=== PATIENT | male | born 1945 | race Caucasian/White ===

== ENCOUNTER 2018-11-16 07:39 | Observation (INO) | payer MEDICARE, BC ==
[~2018-11-16] VITALS: Ht 185.4 cm; Wt 75.2 kg
[2018-11-16] MEDS ORDERED: PLEASE ENTER ALLERGIES MC SCH (08:30)
[2018-11-16] MEDS ORDERED: PLEASE ENTER HEIGHT AND WEIGHT MC SCH (08:30)
[2018-11-16] MEDS ORDERED: AMIT25TA PO (08:56)
[2018-11-16] MEDS ORDERED: LAMO200T2 PO (08:56)
[2018-11-16] MEDS ORDERED: AMLO2.5T5 PO (08:56)
[2018-11-16] MEDS ORDERED: IBUP-1484 PO (08:56)
[2018-11-16] MEDS ORDERED: CLON0.25 PO (08:56)
[2018-11-16] MEDS ORDERED: METF500T17 PO (08:56)
[2018-11-16] MEDS ORDERED: ASPI-496 PO (08:56)
[2018-11-16] MEDS ORDERED: CLOP75TA PO (08:56)
[2018-11-16] MEDS ORDERED: FLUT9.9S INH (08:56)
[2018-11-16] MEDS ORDERED: FISH OIL PO (08:56)
[2018-11-16] MEDS ORDERED: HYDR-3237 PO (08:56)
[2018-11-16] MEDS ORDERED: NITR0.4T28 SL (08:56)
[2018-11-16] MEDS ORDERED: BENA20TA54 PO (08:56)
[2018-11-16] MEDS ORDERED: OMEGA PO (08:56)
[2018-11-16] MEDS ORDERED: ROSU10TA25 PO (08:56)
[2018-11-16] MEDS ORDERED: OXYM15SP8 NAS (08:56)
[2018-11-16] MEDS ORDERED: SILD100T PO (08:56)
[2018-11-16] MEDS ORDERED: CARV80CP PO (08:56)
[2018-11-16] MEDS ORDERED: CHOL200074 PO (08:56)
[2018-11-16] MEDS ORDERED: CYAN50002 PO (08:56)
[2018-11-16] MEDS ORDERED: EPIN0.3A3 SC (08:56)
[2018-11-16] MEDS ORDERED: [UNRECOGNIZED DRUG - MIXTURE] PO (08:56)
[2018-11-16 09:03] VITALS: BP 143/70
[2018-11-16] MEDS ORDERED: methylPREDNISolone SOD SUCC 125 MG/2 ML IVPush ONE (10:00)
[2018-11-16] MEDS ORDERED: DIPHENHYDRAMINE 50 MG/ML, 1ML IVPush ONE (10:00)
[2018-11-16] MEDS ORDERED: TICAGRELOR 90 MG TABLET ONE (11:24)
[2018-11-16] MEDS ORDERED: MIDAZOLAM 1 MG/ML, 5ML ONE (11:24)
[2018-11-16] MEDS ORDERED: VERAPAMIL 2.5 MG/ML, 2ML ONE (11:24)
[2018-11-16] MEDS ORDERED: HEPARIN 1,000 UNITS/ML, 10ML ONE (11:25)
[2018-11-16] MEDS ORDERED: BIVALIRUDIN 250 MG ONE (11:25)
[2018-11-16] MEDS ORDERED: FENTANYL PF 100 MCG/2ML ONE (11:25)
[2018-11-16] MEDS ORDERED: LIDOCAINE-MPF 1%, 5ML ONE (11:25)
[2018-11-16] MEDS ORDERED: methylPREDNISolone SOD SUCC 125 MG/2 ML ONE (11:37)
[2018-11-16] MEDS ORDERED: DIPHENHYDRAMINE 50 MG/ML, 1ML ONE (11:37)
[2018-11-16] MEDS ORDERED: HYDROcodone/APAP 5/325 TABLET PO PRN (13:00)
[2018-11-16] MEDS: ASPIRIN 81 MG TABLET EC PO SCH (14:42)
[2018-11-16] MEDS: SODIUM CHLORIDE 0.9% 1,000 ML IV SCH ×2 (15:55→23:00)
[2018-11-16 20:00] VITALS: BP 109/77
[2018-11-16] MEDS ORDERED: FLUTICASONE NASAL SPRAY 16GM NAS SCH (21:00)
[2018-11-16] MEDS ORDERED: AMITRIPTYLINE 25 MG TABLET PO SCH (21:00)
[2018-11-16] MEDS ORDERED: OXYMETAZOLINE NASAL SPRAY 0.05%, 15ML NAS SCH (21:00)
[2018-11-16] MEDS ORDERED: IBUPROFEN 200 MG TABLET PO SCH (21:00)
[2018-11-16] MEDS: LAMOTRIGINE 200 MG TABLET PO SCH (22:36)
[2018-11-16] MEDS: TICAGRELOR 90 MG TABLET PO SCH (22:36)
[2018-11-16] MEDS ORDERED: AMLODIPINE 5 MG TABLET PO ONE (23:00)
[2018-11-17 03:39] VITALS: BP 135/64
[2018-11-17 04:38] LABS: ANION GAP 8 mmol/L (5-15); CALCIUM 9.3 mg/dL (8.5-10.1); CHLORIDE 110 mmol/L (98-107)
[2018-11-17 04:40] LABS: CREATININE 1.44 mg/dL (0.7-1.3)
[2018-11-17] MEDS: SODIUM CHLORIDE 0.9% 1,000 ML IV SCH (07:00)
[2018-11-17 07:52] VITALS: BP 182/82
[2018-11-17] MEDS ORDERED: TICA90TA PO (08:21)
[2018-11-17] MEDS: LAMOTRIGINE 200 MG TABLET PO SCH (08:39)
[2018-11-17] MEDS: ASPIRIN 81 MG TABLET EC PO SCH (08:39)
[2018-11-17] MEDS: TICAGRELOR 90 MG TABLET PO SCH (08:39)
[2018-11-17] MEDS ORDERED: BENAZEPRIL 20 MG TABLET PO SCH (09:00)
[2018-11-17] MEDS ORDERED: CARVEDILOL PHOSPHATE 80 MG PO SCH (09:00)
[2018-11-17] MEDS ORDERED: AMLODIPINE 2.5 MG TABLET PO SCH (09:00)
[2018-11-17] MEDS ORDERED: ATORVASTATIN 20 MG TABLET PO SCH (09:00)
== END 2018-11-17 09:58 | disposition home or self-care (01) ==
LOC: CACL 07:39 → ORIP 12:38 → 5SO 14:17 → DCLOUNGE 11-17 09:37
PROVIDERS: ADMIT Internal Medicine Cardiovascular Disease; ATTEND Internal Medicine Cardiovascular Disease
DX: I25.10 Atherosclerotic heart disease of native coronary artery without angina pectoris (principal); F31.9 Bipolar disorder, unspecified; E11.9 Type 2 diabetes mellitus without complications; E78.5 Hyperlipidemia, unspecified
CPT/HCPCS: 36415; 80048; 85014; 85018; 93454; 99156; 99157; C1724; C1725; C1769; C1887; C1894; C9602; G0378; J0583; J1200; J1644; J2250; J2930; J3010; J7030; Q9967